=== PATIENT | male | born 1995 | race Caucasian/White ===

== ENCOUNTER 2019-07-31 11:07 | Emergency (ER) | payer BC, MEDICAID ==
[2019-07-31] MEDS ORDERED: Albuterol 0.083% 2.5 MG/3 ML Neb Soln NEB ONE (11:37)
--- NOTE | 2019-07-31 12:10 | CRLCR ---
INDICATION: Shortness breath and wheezy. TECHNIQUE: Two-views of the chest PA and lateral. COMPARISON: None. FINDINGS: Heart and mediastinum are normal. Lungs are clear. No consolidations or pleural effusions. Trachea is midline. No pneumothorax. Surgical clips in the right upper quadrant. IMPRESSION: No evidence of acute disease. Dictated by Lokesh Deal MD @ Jul 31 2019 12:08PM Signed by Dr. Lokesh Deal @ Jul 31 2019 12:08PM
--- NOTE | 2019-07-31 13:54 | EDM.PDOC ---
ED HPI GENERAL MEDICAL PROBLEM - General Chief Complaint: Respiratory Problem Stated Complaint: ANIXOUS Time Seen by Provider: 07/31/19 12:40 Source of Information: Reports: Patient, Family History Limitations: Reports: No Limitations - History of Present Illness INITIAL COMMENTS - FREE TEXT/NARRATIVE: pt was working at the [facility] [employer] [facility] [employer] desk and he became acutely sob. He felt very tight in his chest. He bent over and he could not catch his breath. Onset: Today, Sudden Duration: Hour(s): Location: Reports: Chest, Other (pt has a known history of exercise induced asthma. ) Associated Symptoms: Reports: Cough, Shortness of Breath, Other (pt was clearly hyperventilating on arrival. He has had panic attacks in the past. ) - Related Data Allergies Allergy/AdvReac Type Severity Reaction Status Date / Time peanut Allergy Severe Anaphylactic Verified 04/21/19 11:29 Shock venom-honey bee Allergy Severe Anaphylactic Verified 04/21/19 11:29 [bee venom (honey bee)] Shock Penicillins Allergy Cannot Verified 03/25/18 20:32 Remember Home Meds: Home Meds Albuterol [Ventolin HFA] 3 ml INH Q4H PRN 12/26/13 [History] EPINEPHrine [Epipen] 0.3 mg IM ASDIRECTED PRN 12/26/13 [History] Levalbuterol HCl [Xopenex] 10 mg PO DAILY PRN 12/26/13 [History] Insulin Aspart [NovoLOG] 1 unit SUBCUT ASDIRECTED 03/25/18 [History] Insulin Aspart [NovoLOG] 1 unit SUBCUT ASDIRECTED 03/25/18 [History] Insulin Degludec [Tresiba Flextouch U-100] 27 unit SUBCUT ASDIRECTED 03/25/18 [ History] Past Medical History HEENT History: Reports: Impaired Vision Other HEENT History: wears contacts Cardiovascular History: Reports: SOB on Exertion Respiratory History: Reports: Asthma Gastrointestinal History: Reports: GERD Musculoskeletal History: Reports: Fracture Other Musculoskeletal History: Left wrist fracture Neurological History: Reports: Concussion Psychiatric History: Reports: Anxiety Endocrine/Metabolic History: Reports: Diabetes, Type I Other Endocrine/Metabolic History: diagnoses . - Past Surgical History GI Surgical History: Reports: Cholecystectomy Social & Family History - Family History Cardiac: Reports: [place] Endocrine/Metabolic: Reports: Diabetes, type II - Tobacco Use Smoking Status *Q: Never Smoker - Caffeine Use Caffeine Use: Reports: Tea - Recreational Drug Use Recreational Drug Use: No ED ROS GENERAL - Review of Systems Review Of Systems: See Below Constitutional: Reports: No Symptoms HEENT: Reports: No Symptoms Respiratory: Reports: Shortness of Breath, Wheezing, Other (pt is hyperventilating nd feeling very sob. ) Cardiovascular: Reports: No Symptoms, Other ( his chest was uncomfortable. ) Endocrine: Reports: No Symptoms GI/Abdominal: Reports: No Symptoms : Reports: No Symptoms Musculoskeletal: Reports: No Symptoms Neurological: Reports: No Symptoms Psychiatric: Reports: Anxiety ED EXAM, GENERAL - Physical Exam Exam: See Below Free Text/Narrative:: pt arrived clearly hyperventilating and quite wheezy. Exam Limited By: No Limitations General Appearance: Alert, Anxious, Moderate Distress, Other (pt is clearly hyperventilating. ) Ears: Normal TMs Nose: Normal Inspection Throat/Mouth: Normal Inspection Head: Atraumatic Respiratory/Chest: Decreased Breath Sounds, Wheezing, Other ( very rapid short resp. ) Cardiovascular: Regular Rate, Rhythm GI/Abdominal: Soft, Non-Tender (Male) Exam: Deferred Rectal (Males) Exam: Deferred Back Exam: Normal Inspection Extremities: Normal Inspection Neurological: Alert, Oriented, Normal Cognition Psychiatric: Anxious Course - Vital Signs Last Recorded V/S: Last Vital Signs Temp 36.4 C 07/31/19 11:18 Pulse 76 07/31/19 11:48 Resp 24 H 07/31/19 11:48 BP 123/86 07/31/19 11:48 Pulse Ox 99 07/31/19 11:48 - Orders/Labs/Meds Labs: Laboratory Tests 07/31/19 07/31/19 Range/Units 11:38 11:45 WBC 5.6 (4.5-11.0) K/uL RBC 5.39 (4.30-5.90) M/uL Hgb 15.6 H (12.0-15.0) g/dL Hct 43.1 (40.0-54.0) % MCV 80 (80-98) fL MCH 29 (27-31) pg MCHC 36 (32-36) % Plt Count 259 (150-400) K/uL Neut % (Auto) 49 (36-66) % Lymph % (Auto) 31 (24-44) % Thayer % (Auto) 8 H (2-6) % Eos % (Auto) 10 H (2-4) % Baso % (Auto) 1 (0-1) % Sodium 135 L (140-148) mmol/L Potassium 4.0 (3.6-5.2) mmol/L Chloride 100 (100-108) mmol/L Carbon Dioxide 25 (21-32) mmol/L Anion Gap 14.0 (5.0-14.0) mmol/L BUN 14 (7-18) mg/dL Creatinine 0.9 (0.8-1.3) mg/dL Est Cr Clr Drug Dosing 114.21 mL/min Estimated GFR (MDRD) > 60 (>60) Glucose 265 H (74-106) mg/dL Calcium 8.8 (8.5-10.1) mg/dL Total Bilirubin 2.0 H (0.2-1.0) mg/dL AST 20 (15-37) U/L ALT 50 (12-78) U/L Alkaline Phosphatase 86 (46-116) U/L Total Protein 7.2 (6.4-8.2) g/dL Albumin 4.0 (3.4-5.0) g/dL Globulin 3.2 (2.3-3.5) g/dL Albumin/Globulin Ratio 1.3 (1.2-2.2) Meds: Medications Discontinued Medications Generic Name Dose Route Start Last Admin Trade Name Freq PRN Reason Stop Dose Admin Albuterol 2.5 mg 07/31/19 11:37 07/31/19 11:47 Proventil Neb Soln NEB 07/31/19 11:38 2.5 mg ONETIME ONE Administration Lorazepam 0.5 mg 07/31/19 14:00 07/31/19 12:36 Ativan PO 0.5 mg TID [id number] Administration - Re-Assessments/Exams Free Text/Narrative Re-Assessment/Exam: 07/31/19 14:00 pt did breath in a paper bag and got better. He had a chest xray that was clear. His o2 sats were good. He was given a neb and he had ativan .5 and he looks much better. Departure - Departure Time of Disposition: 13:51 Disposition: Home, Self-Care 01 Condition: Fair Clinical Impression: Panic attack, Wheezing - Discharge Information Instructions: Panic Attack, [id number] Referrals: PCP,None [Primary Care Provider] - Forms: ED Department Discharge Care Plan Goals: no further work today. He may return to work tomorrow. Pt does need to carry his inhaler with him. This afternoon pt should do nebs about 6 hours apart. Pt has xanax at home which he can uise if the pt should start feeling anxious Sepsis Event Note - Focused Exam Date Exam was Performed: 08/03/19 Time Exam was Performed: 18:28
[2019-07-31] MEDS ORDERED: LORazepam 0.5 MG Tab PO SCH (14:00)
[2019-07-31 14:14] VITALS: BP 123/86; PULSE 76
== END 2019-07-31 14:00 | disposition home or self-care (01) ==
LOC: JP.ED 11:07
DX: F41.0 Panic disorder [episodic paroxysmal anxiety] (principal); E10.9 Type 1 diabetes mellitus without complications; J45.909 Unspecified asthma, uncomplicated; Z90.49 Acquired absence of other specified parts of digestive tract; Z79.899 Other long term (current) drug therapy; Z91.010 Allergy to peanuts; Z91.030 Bee allergy status; Z88.0 Allergy status to penicillin
CPT/HCPCS: 36415; 71046; 80053; 85025; 94640; 99285; A9270

== ENCOUNTER 2021-02-25 19:52 | Emergency (ER) | payer OTHER, MEDICAID ==
[2021-02-25] MEDS ORDERED: Albuterol/Ipratropium 3.0-0.5 MG/3 ML Neb Soln NEB ONE (19:57)
[2021-02-25] MEDS ORDERED: LORazepam 1 MG Tab PO ONE (20:26)
[2021-02-25 20:28] VITALS: BP 153/81
[2021-02-25] MEDS ORDERED: methylPREDNISolone Sodium Succinate 125 MG/2 ML SDV IVPUSH ONE (20:37)
--- NOTE | 2021-02-25 20:51 | EDM.PDOC ---
ED HPI GENERAL MEDICAL PROBLEM - General Chief Complaint: Respiratory Problem Stated Complaint: DIFFICULTY BREATHING, COLD SWEAT, DIZZY Time Seen by Provider: 02/25/21 20:00 Source of Information: Reports: Patient, Family History Limitations: Reports: No Limitations - History of Present Illness INITIAL COMMENTS - FREE TEXT/NARRATIVE: 25-year-old male with chronic anxiety, asthma, and type 1 diabetes for the past 4 years presents with 1-1/2 weeks of persistent cough and wheezing. No fevers or chills, he is fully vaccinated for Covid. He was seen in the clinic a week ago, a chest x-ray was normal, Covid was negative and he was placed on prednisone and Zithromax. Seem to get somewhat better but the last 2 days has been much worse again. He arrived extremely anxious, increased respiratory rate with audible wheezing but with a 100% O2 saturation. No complaints of pain or headache. He took a nebulizer of albuterol just prior to coming in. He was diaphoretic. Onset: Gradual Duration: Week(s): (1/2 weeks of symptoms) Improves with: Reports: Other (Nebulizer helps for a while) Worsens with: Reports: None Associated Symptoms: Reports: Cough, Shortness of Breath, Other (Anxiety). Denies: Chest Pain, Nausea/Vomiting Treatments TECHNICAL DIRECTOR: Reports: Other Medication(s) Other Treatments TECHNICAL DIRECTOR: inhalers Chest Pain Score (Numeric/FACES): 5 - Related Data Allergies Allergy/AdvReac Type Severity Reaction Status Date / Time peanut Allergy Severe Anaphylactic Verified 02/25/21 19:58 Shock venom-honey bee Allergy Severe Anaphylactic Verified 02/25/21 19:58 [bee venom (honey bee)] Shock insulin lispro Allergy Hives Verified 02/25/21 19:58 [From Humalog Mix] insulin lispro protamine Allergy Hives Verified 02/25/21 19:58 [From Humalog Mix] Penicillins Allergy Cannot Verified 02/25/21 19:58 Remember Home Meds: Home Meds Albuterol [Ventolin HFA] 3 ml INH Q4H PRN 12/26/13 [History] EPINEPHrine [Epipen] 0.3 mg IM ASDIRECTED PRN 12/26/13 [History] levalbuterol HCL [Xopenex] 10 mg PO DAILY PRN 12/26/13 [History] Insulin Aspart [NovoLOG] 1 unit SUBCUT ASDIRECTED 03/25/18 [History] Insulin Aspart [NovoLOG] 1 unit SUBCUT ASDIRECTED 03/25/18 [History] Insulin Degludec [Tresiba Flextouch U-100] 27 unit SUBCUT ASDIRECTED 03/25/18 [History] ALPRAZolam [Xanax] 0.25 mg PO DAILY PRN 08/15/19 [History] Sertraline [Zoloft] 50 mg PO DAILY 02/25/21 [History] Past Medical History HEENT History: Reports: Impaired Vision Other HEENT History: wears contacts Cardiovascular History: Reports: SOB on Exertion Respiratory History: Reports: Asthma Gastrointestinal History: Reports: GERD Musculoskeletal History: Reports: Fracture Other Musculoskeletal History: Left wrist fracture. L shoulder pain Neurological History: Reports: Concussion Psychiatric History: Reports: Anxiety Endocrine/Metabolic History: Reports: Diabetes, Type I Other Endocrine/Metabolic History: diagnoses . - Past Surgical History HEENT Surgical History: Reports: None Cardiovascular Surgical History: Reports: None Respiratory Surgical History: Reports: None GI Surgical History: Reports: Cholecystectomy Neurological Surgical History: Reports: None Musculoskeletal Surgical History: Reports: None Social & Family History - Family History Cardiac: Reports: [place] Endocrine/Metabolic: Reports: Diabetes, type II - Tobacco Use Tobacco Use Status *Q: Never Tobacco User - Caffeine Use Caffeine Use: Reports: Coffee - Recreational Drug Use Recreational Drug Use: No ED ROS GENERAL - Review of Systems Review Of Systems: See Below Constitutional: Reports: Malaise. Denies: Fever, Chills HEENT: Denies: Ear Pain, Throat Pain Respiratory: Reports: Shortness of Breath, Cough. Denies: Sputum Cardiovascular: Denies: Chest Pain GI/Abdominal: Denies: Abdominal Pain, Nausea, Vomiting Musculoskeletal: Reports: No Symptoms Skin: Reports: Pallor, Diaphoresis Neurological: Reports: Weakness. Denies: Headache Psychiatric: Reports: Anxiety Free Text/Narrative/Comment: Glucose levels have been raised recently because of the prednisone treatment ED EXAM, GENERAL - Physical Exam Exam: See Below Exam Limited By: No Limitations General Appearance: Alert, Anxious, Mild Distress Eye Exam: Bilateral Eye: Normal Inspection Throat/Mouth: Normal Inspection Head: Atraumatic Respiratory/Chest: No Accessory Muscle Use, Respiratory Distress (Patient does present with a mild increased respiratory effort but not tachypnea), Rhonchi, Wheezing (Diffuse expiratory rhonchi and wheezes are heard throughout both lungs) Cardiovascular: Regular Rate, Rhythm. No: Tachycardia Neurological: Alert, Oriented Psychiatric: Normal Mood, Anxious Skin Exam: Warm, Diaphoretic Course - Vital Signs Last Recorded V/S: Last Vital Signs Temp 95.9 F L 02/25/21 20:27 Pulse 93 02/25/21 20:55 Resp 16 02/25/21 20:55 BP 153/81 H 02/25/21 20:27 Pulse Ox 100 02/25/21 20:55 - Orders/Labs/Meds Orders: Active Orders 24 hr Category Date Time Status Chest 2V [CR] Routine Exams 02/25/21 20:10 Taken Labs: Laboratory Tests 02/25/21 Range/Units 19:59 SARS CoV-2 RNA Rapid MK Negative Meds: Medications Discontinued Medications Generic Name Dose Route Start Last Admin Trade Name Freq PRN Reason Stop Dose Admin Albuterol/Ipratropium 3 ml 02/25/21 19:57 02/25/21 20:03 Albuterol/Ipratropium 3.0-0.5 Mg/3 Ml Neb Soln NEB 02/25/21 19:58 3 ml ONETIME ONE Administration Methylprednisolone Sodium Succinate 125 mg 02/25/21 20:37 02/25/21 20:52 Methylprednisolone Sodium Succinate 125 Mg/2 Ml Sdv IVPUSH 02/25/21 20:38 125 mg ONETIME ONE Administration - Re-Assessments/Exams Free Text/Narrative Re-Assessment/Exam: 02/25/21 21:42 Patient presented very anxious. He was given a DuoNeb which gave him significant objective and subjective improvement. A 2 view chest x-ray was then done that shows just slight increased peribronchial thickening which I believe is a change from his previous x-ray a week ago in the clinic. Covid was n egative. An IV was started and the patient was given 125 mg of IV Solu-Medrol, and he will be placed on a Medrol Dosepak starting tomorrow. He was encouraged to use his Xanax as needed for anxiety breakthrough as part of his presentation was an anxiety or panic attack. He felt much better on discharge. Departure - Departure Time of Disposition: 21:05 Disposition: Home, Self-Care 01 Clinical Impression: Viral bronchitis, Anxiety about health Asthma exacerbation Qualifiers: Asthma severity: moderate Asthma persistence: persistent Qualified Code(s): J45.41 - Moderate persistent asthma with (acute) exacerbation - Discharge Information Instructions: Asthma, Adult Referrals: Pelon Lowe MD [Primary Care Provider] - Forms: ED Department Discharge Care Plan Goals: Take Medrol Dosepak as prescribed, starting tomorrow morning. Continue with your nebulizer as needed and consider a Xanax occasionally when you are anxious. Return anytime if worsening despite treatment. Consider rechecking in 3 to 4 days if not improving satisfactorily. Sepsis Event Note (ED) - Evaluation Sepsis Screening Result: No Definite Risk - Focused Exam Vital Signs: Vital Signs Temp Pulse Resp BP Pulse Ox 02/25/21 20:55 93 16 100 02/25/21 20:27 95.9 F L 95 22 H 153/81 H 100 02/25/21 19:54 96.4 F L 106 H 16 137/97 H 100 - My Orders Last 24 Hours: My Active Orders 02/25/21 20:10 Chest 2V [CR] Routine - Assessment/Plan Last 24 Hours: My Active Orders 02/25/21 20:10 Chest 2V [CR] Routine
[2021-02-25 20:56] VITALS: PULSE 93
--- NOTE | 2021-02-26 09:29 | CR ---
CHEST: 2 view CLINICAL HISTORY:Dyspnea COMPARISON:07/31/2019 FINDINGS: Heart size and pulmonary vascular normal. There is mild prominence of the lung markings bilaterally. No effusion is seen. IMPRESSION: Mild generalized prominence lung markings. Some of this may be technical. Diffuse pneumonitis is not excluded
== END 2021-02-25 21:06 | disposition home or self-care (01) ==
LOC: JP.ED 19:52
DX: U07.1 COVID-19 (principal); J20.8 Acute bronchitis due to other specified organisms; E10.9 Type 1 diabetes mellitus without complications; J45.41 Moderate persistent asthma with (acute) exacerbation; Z91.010 Allergy to peanuts; Z91.030 Bee allergy status; Z88.8 Allergy status to other drugs, medicaments and biological substances; Z88.0 Allergy status to penicillin; Z79.899 Other long term (current) drug therapy
CPT/HCPCS: 71046; 87635; 94640; 96374; 99285; J2930; J7620-GY; U0002

== ENCOUNTER 2021-07-07 11:32 | Emergency (ER) | payer MEDICAID ==
[2021-07-07] MEDS ORDERED: Sodium Chloride 0.9% 10 ML Syringe FLUSH PRN (12:21)
[2021-07-07] MEDS ORDERED: Levofloxacin/Dextrose 5%-Water 750 MG in Premix Bag 1 BAG IV ONE (12:27)
[2021-07-07] MEDS ORDERED: Albuterol 8 GM Inhaler INH ONE (12:30)
[2021-07-07] MEDS ORDERED: methylPREDNISolone Sodium Succinate 125 MG/2 ML SDV IVPUSH ONE (12:46)
[2021-07-07 12:57] LABS: CORONAVIRUS COVID-19 NAA NEGATIVE (NEGATIVE)
[2021-07-07] MEDS ORDERED: Montelukast 10 MG Tab PO ONE (13:12)
[2021-07-07 18:14] VITALS: BP 139/84; PULSE 84
[2021-07-07] MEDS ORDERED: predniSONE 20 MG Tab PO ONE (18:25)
== END 2021-07-07 18:58 | disposition home or self-care (01) ==
LOC: JP.ED 11:32
DX: J45.41 Moderate persistent asthma with (acute) exacerbation (principal); E10.9 Type 1 diabetes mellitus without complications; Z90.49 Acquired absence of other specified parts of digestive tract; Z88.0 Allergy status to penicillin; Z91.010 Allergy to peanuts; Z79.4 Long term (current) use of insulin; Z79.899 Other long term (current) drug therapy; Z20.822 Contact with and (suspected) exposure to COVID-19
CPT/HCPCS: 0241U; 36415; 71045; 80048; 80076; 83605; 84145; 85025; 85379; 85610; 85730; 86140; 87040; 93005; 94640; 96374; 96375; 99285; A9270; J1956; J2930; J7512

== ENCOUNTER 2021-09-09 16:03 | Emergency (ER) | payer MEDICAID ==
[2021-09-09] MEDS ORDERED: LORazepam 2 MG/ML SDV IM ONE (16:26)
[2021-09-09] MEDS ORDERED: LORazepam 2 MG/ML SDV IM PRN (16:54)
[2021-09-09 17:45] VITALS: BP 123/79; PULSE 81
== END 2021-09-09 18:05 | disposition home or self-care (01) ==
LOC: JP.ED 16:03
DX: F41.0 Panic disorder [episodic paroxysmal anxiety] (principal); E10.9 Type 1 diabetes mellitus without complications; Z91.010 Allergy to peanuts; Z91.030 Bee allergy status; Z88.0 Allergy status to penicillin; Z88.8 Allergy status to other drugs, medicaments and biological substances
CPT/HCPCS: 36415; 80048; 85025; 96372; 99283; J2060

== ENCOUNTER 2021-09-25 15:25 | Emergency (ER) | payer MEDICAID ==
[2021-09-25] MEDS ORDERED: LORazepam 2 MG/ML SDV IVPUSH ONE ×2 (15:28→16:36)
[2021-09-25 17:30] VITALS: BP 120/73; PULSE 82
== END 2021-09-25 17:56 | disposition home or self-care (01) ==
LOC: JP.ED 15:25
DX: F45.8 Other somatoform disorders (principal); E10.9 Type 1 diabetes mellitus without complications; K21.9 Gastro-esophageal reflux disease without esophagitis; Z91.010 Allergy to peanuts; Z91.030 Bee allergy status; Z88.8 Allergy status to other drugs, medicaments and biological substances; Z88.0 Allergy status to penicillin
CPT/HCPCS: 36415; 36600; 80048; 82803; 82947; 85025; 96374; 96376; 99282; 99283-25; J2060

== ENCOUNTER 2021-11-04 17:31 | Emergency (ER) | payer OTHER, MEDICAID ==
[2021-11-04] MEDS ORDERED: predniSONE 20 MG Tab PO ONE (18:04)
[2021-11-04 18:13] VITALS: BP 131/105; PULSE 98
[2021-11-04 18:51] LABS: ESTIMATED GFR > 60 (>60)
== END 2021-11-04 19:21 | disposition home or self-care (01) ==
LOC: JP.ED 17:31
DX: U07.1 COVID-19 (principal); J45.901 Unspecified asthma with (acute) exacerbation; E10.9 Type 1 diabetes mellitus without complications; Z91.030 Bee allergy status; Z88.8 Allergy status to other drugs, medicaments and biological substances; Z88.0 Allergy status to penicillin; Z91.048 Other nonmedicinal substance allergy status; Z79.4 Long term (current) use of insulin; Z86.16 Personal history of COVID-19
CPT/HCPCS: 36415; 71045; 80048; 84145; 85025; 86140; 99282; 99285; J7512

== ENCOUNTER 2022-07-01 12:52 | Emergency (ER) | payer OTHER, MEDICAID ==
[2022-07-01] MEDS ORDERED: 50% Dextrose in Water 50 ML Syringe IVPUSH ONE ×2 (13:06→13:54)
[2022-07-01] MEDS ORDERED: Dextrose 5%-Lact Ringers w/KCl 1,000 ML IV SCH (13:15)
[2022-07-01 13:29] LABS: ESTIMATED GFR 120 mL/min (>60)
[2022-07-01 14:00] VITALS: BP 128/85; PULSE 84
== END 2022-07-01 15:10 | disposition home or self-care (01) ==
LOC: JP.ED 12:52
DX: E10.649 Type 1 diabetes mellitus with hypoglycemia without coma (principal); K21.9 Gastro-esophageal reflux disease without esophagitis; J45.909 Unspecified asthma, uncomplicated; Z91.030 Bee allergy status; Z88.0 Allergy status to penicillin; Z91.048 Other nonmedicinal substance allergy status; Z86.16 Personal history of COVID-19
CPT/HCPCS: 36415; 80048; 82947; 85025; 96361; 96374; 99284; J3480

== ENCOUNTER 2022-12-04 06:52 | Emergency (ER) | payer MEDICAID, OTHER ==
[2022-12-04] MEDS ORDERED: Albuterol/Ipratropium 3.0-0.5 MG/3 ML Neb Soln NEB ONE (07:34)
[2022-12-04] MEDS ORDERED: Acetaminophen 325 MG Tab PO ONE (07:34)
[2022-12-04 07:38] LABS: BASOPHILS ABSOLUTE AUTO 0.08 K/uL (0.00-0.10); EOSINOPHILS ABSOLUTE AUTO 0.64 K/uL (0.00-0.40); EOSINOPHILS PERCENT AUTO 8.1 % (0.0-5.4); HEMATOCRIT 44.6 % (38.4-49.7); HEMOGLOBIN 15.9 g/dL (12.9-16.9); IMMATURE GRAN ABSOLUTE AUTO 0.04 K/uL (0.00-0.23); IMMATURE GRAN PERCENT AUTO 0.5 % (0.0-0.7); LYMPHOCYTES ABSOLUTE AUTO 2.24 K/uL (0.8-3.3); LYMPHOCYTES PERCENT AUTO 28.2 % (11.4-47.7); MEAN CORPUSCULAR HGB CONC 35.7 g/dL (31.6-35.5); MEAN CORPUSCULAR VOLUME 81.4 fL (81.4-99.0); MONOCYTES ABSOLUTE AUTO 0.65 K/uL (0.20-0.90); MONOCYTES PERCENT AUTO 8.2 % (3.3-12.6); PLATELET COUNT,PLT 256 K/uL (130-375); RED BLOOD CELL COUNT 5.48 M/uL (4.14-5.76)
[2022-12-04 08:02] LABS: CALCIUM 9.1 mg/dL (8.5-10.1); EST CRCL DRUG DOSING (CG) 103.74 mL/min; POTASSIUM,K 4.7 mmol/L (3.6-5.2); TROPONIN I HIGH SENSITIVITY 4.1 pg/mL (<=60.3)
[2022-12-04 09:08] VITALS: BP 144/79; PULSE 89
== END 2022-12-04 09:55 | disposition home or self-care (01) ==
LOC: JP.ED 06:52
DX: M94.0 Chondrocostal junction syndrome [Tietze] (principal); J45.909 Unspecified asthma, uncomplicated; E10.9 Type 1 diabetes mellitus without complications; F17.200 Nicotine dependence, unspecified, uncomplicated; Z79.4 Long term (current) use of insulin; Z79.51 Long term (current) use of inhaled steroids; Z91.030 Bee allergy status; Z88.8 Allergy status to other drugs, medicaments and biological substances; Z91.018 Allergy to other foods; Z88.0 Allergy status to penicillin; Z86.16 Personal history of COVID-19
CPT/HCPCS: 36415; 71046; 80048; 84484; 85025; 85379; 93005; 94640; 99285; A9270; J7620

== ENCOUNTER 2023-02-19 10:32 | Day surgery (SDC) | payer OTHER ==
[2023-02-19] MEDS ORDERED: Lactated Ringers 1,000 ML IV ONE (10:35)
[2023-02-19 10:53] LABS: HEMOGLOBIN 16.6 g/dL (12.9-16.9); MEAN CORPUSCULAR HEMOGLOBIN 29.2 pg (31.6-35.5); MEAN CORPUSCULAR HGB CONC 35.3 g/dL (31.6-35.5); MEAN CORPUSCULAR VOLUME 82.7 fL (81.4-99.0); RED BLOOD CELL COUNT 5.68 M/uL (4.14-5.76)
[2023-02-19 11:14] LABS: ALANINE AMINOTRANSFERASE,ALT 29 U/L (12-78); ALBUMIN 4.2 g/dL (3.4-5.0); ALKALINE PHOSPHATASE 80 U/L (46-116); ASPARTATE AMNIOTRANSFERASE,AST 17 U/L (15-37); BILIRUBIN TOTAL 1.7 mg/dL (0.2-1.0); BLOOD UREA NITROGEN,BUN 10 mg/dL (7-18); CALCIUM 8.6 mg/dL (8.5-10.1); CARBON DIOXIDE,CO2 28 mmol/L (21-32); CHLORIDE,CL 102 mmol/L (100-108); EST CRCL DRUG DOSING (CG) 103.74 mL/min; ESTIMATED GFR 106 mL/min (>60); GLUCOSE RANDOM 70 mg/dL (74-106); POTASSIUM,K 3.5 mmol/L (3.6-5.2); PROTEIN TOTAL,TP 8.3 g/dL (6.4-8.2); SODIUM,NA 141 mmol/L (140-148)
[2023-02-19] MEDS ORDERED: Propofol 200 MG/20 ML SDV ONE (11:15)
[2023-02-19] MEDS ORDERED: fentaNYL 100 MCG/2 ML SDV ONE (11:16)
[2023-02-19] MEDS ORDERED: Midazolam 1 MG/ML 2 ML SDV ONE (11:16)
[2023-02-19 11:17] LABS: ANION GAP 14.5 mmol/L (5.0-14.0)
[2023-02-19] MEDS ORDERED: Potassium Chloride 10 MEQ in Premix Bag 1 BAG IV ONE (11:45)
[2023-02-19] MEDS ORDERED: Sodium Chloride 0.9% 1,000 ML IV SCH (13:00)
[2023-02-19 13:47] VITALS: BP 129/80; PULSE 70
== END 2023-02-19 13:57 | disposition home or self-care (01) ==
LOC: JP.SDS 10:32
PROVIDERS: ATTEND Student in an Organized Health Care Education/Training Program
DX: K21.9 Gastro-esophageal reflux disease without esophagitis (principal); K29.50 Unspecified chronic gastritis without bleeding; K25.9 Gastric ulcer, unspecified as acute or chronic, without hemorrhage or perforation; J45.909 Unspecified asthma, uncomplicated; F41.9 Anxiety disorder, unspecified; F32.A Depression, unspecified; F43.10 Post-traumatic stress disorder, unspecified; E10.9 Type 1 diabetes mellitus without complications; E66.9 Obesity, unspecified; Z88.0 Allergy status to penicillin; Z88.8 Allergy status to other drugs, medicaments and biological substances; Z91.030 Bee allergy status; Z68.30 Body mass index [BMI] 30.0-30.9, adult
CPT/HCPCS: 36415; 43239; 80053; 83690; 85027; 88305; J2250; J2704; J3010; J3480; J7030; J7120

== ENCOUNTER 2023-04-30 06:31 | Day surgery (SDC) | payer OTHER ==
[2023-04-30] MEDS ORDERED: Propofol 200 MG/20 ML SDV ONE (07:12)
[2023-04-30] MEDS ORDERED: fentaNYL 100 MCG/2 ML SDV ONE (07:12)
[2023-04-30] MEDS ORDERED: Midazolam 1 MG/ML 2 ML SDV ONE (07:13)
[2023-04-30] MEDS: Lactated Ringers 1,000 ML IV SCH (07:25)
[2023-04-30 09:30] VITALS: BP 120/75; PULSE 74
== END 2023-04-30 09:35 | disposition home or self-care (01) ==
LOC: JP.SDS 06:31
PROVIDERS: ATTEND Student in an Organized Health Care Education/Training Program
DX: K29.50 Unspecified chronic gastritis without bleeding (principal); K25.9 Gastric ulcer, unspecified as acute or chronic, without hemorrhage or perforation; I10 Essential (primary) hypertension; J45.909 Unspecified asthma, uncomplicated; F43.10 Post-traumatic stress disorder, unspecified; F41.9 Anxiety disorder, unspecified; I25.2 Old myocardial infarction; Z79.899 Other long term (current) drug therapy; Z88.0 Allergy status to penicillin; Z91.030 Bee allergy status; Z91.018 Allergy to other foods; Z88.8 Allergy status to other drugs, medicaments and biological substances
CPT/HCPCS: 88305; J2250; J2704; J3010; J7120

== ENCOUNTER 2023-09-16 15:00 | Emergency (ER) | payer OTHER ==
[2023-09-16 15:42] LABS: BASOPHILS ABSOLUTE AUTO 0.07 K/uL (0.00-0.10); BASOPHILS PERCENT AUTO 0.9 % (0.1-1.3); EOSINOPHILS ABSOLUTE AUTO 0.24 K/uL (0.00-0.40); EOSINOPHILS PERCENT AUTO 3.1 % (0.0-5.4); HEMATOCRIT 42.3 % (38.4-49.7); HEMOGLOBIN 15.2 g/dL (12.9-16.9); IMMATURE GRAN PERCENT AUTO 0.1 % (0.0-0.7); LYMPHOCYTES ABSOLUTE AUTO 2.01 K/uL (0.8-3.3); LYMPHOCYTES PERCENT AUTO 25.9 % (11.4-47.7); MEAN CORPUSCULAR HGB CONC 35.9 g/dL (31.6-35.5); MEAN CORPUSCULAR VOLUME 80.7 fL (81.4-99.0); MONOCYTES ABSOLUTE AUTO 0.43 K/uL (0.20-0.90); MONOCYTES PERCENT AUTO 5.5 % (3.3-12.6); NEUTROPHILS ABSOLUTE AUTO 5.01 K/uL (1.0-7.6); NEUTROPHILS PERCENT AUTO 64.5 % (40.0-78.1); PLATELET COUNT,PLT 253 K/uL (130-375); RED BLOOD CELL COUNT 5.24 M/uL (4.14-5.76); WHITE BLOOD CELL COUNT,WBC 7.8 K/uL (3.2-11.0)
[2023-09-16 15:43] LABS: IMMATURE GRAN ABSOLUTE AUTO 0.01 K/uL (0.00-0.23)
[2023-09-16 15:46] VITALS: BP 120/83; PULSE 78
[2023-09-16 15:48] LABS: AMPHETAMINES SCREEN, URINE NEGATIVE (NEGATIVE); BARBITURATE SCREEN,URINE NEGATIVE (NEGATIVE); BENZODIAZEPINES SCREEN,URINE NEGATIVE (NEGATIVE); METHADONE SCREEN, URINE NEGATIVE (NEGATIVE); METHAMPHETAMINES SCREEN, URINE NEGATIVE (NEGATIVE); OXYCODONE SCREEN,URINE NEGATIVE (NEGATIVE); PROPOXYPHENE SCREEN,URINE NEGATIVE (NEGATIVE); THC SCREEN,URINE 50 NG/ML NEGATIVE (NEGATIVE)
[2023-09-16 15:58] LABS: ANION GAP 13.5 mmol/L (5.0-14.0); CALCIUM 9.6 mg/dL (8.5-10.1); EST CRCL DRUG DOSING (CG) 102.82 mL/min; POTASSIUM,K 3.5 mmol/L (3.6-5.2)
== END 2023-09-16 17:03 | disposition home or self-care (01) ==
LOC: JP.ED 15:00
DX: R55 Syncope and collapse (principal); I10 Essential (primary) hypertension; J45.909 Unspecified asthma, uncomplicated; K21.9 Gastro-esophageal reflux disease without esophagitis; E10.9 Type 1 diabetes mellitus without complications; Z88.8 Allergy status to other drugs, medicaments and biological substances; Z91.030 Bee allergy status; Z88.0 Allergy status to penicillin; Z79.51 Long term (current) use of inhaled steroids; Z86.16 Personal history of COVID-19
CPT/HCPCS: 36415; 80048; 80305-QW; 83605; 85025; 93005; 93010; 99283; 99284

== ENCOUNTER 2023-09-17 11:42 | Emergency (ER) | payer OTHER ==
[2023-09-17 12:18] LABS: BASOPHILS ABSOLUTE AUTO 0.07 K/uL (0.00-0.10); BASOPHILS PERCENT AUTO 1.1 % (0.1-1.3); EOSINOPHILS ABSOLUTE AUTO 0.25 K/uL (0.00-0.40); HEMATOCRIT 40.4 % (38.4-49.7); HEMOGLOBIN 14.3 g/dL (12.9-16.9); IMMATURE GRAN ABSOLUTE AUTO 0.03 K/uL (0.00-0.23); IMMATURE GRAN PERCENT AUTO 0.5 % (0.0-0.7); LYMPHOCYTES ABSOLUTE AUTO 1.48 K/uL (0.8-3.3); LYMPHOCYTES PERCENT AUTO 23.5 % (11.4-47.7); MEAN CORPUSCULAR HEMOGLOBIN 29.1 pg (31.6-35.5); MEAN CORPUSCULAR HGB CONC 35.4 g/dL (31.6-35.5); MEAN CORPUSCULAR VOLUME 82.3 fL (81.4-99.0); MONOCYTES ABSOLUTE AUTO 0.39 K/uL (0.20-0.90); MONOCYTES PERCENT AUTO 6.2 % (3.3-12.6); NEUTROPHILS ABSOLUTE AUTO 4.07 K/uL (1.0-7.6); NEUTROPHILS PERCENT AUTO 64.7 % (40.0-78.1); PLATELET COUNT,PLT 204 K/uL (130-375); RED BLOOD CELL COUNT 4.91 M/uL (4.14-5.76); WHITE BLOOD CELL COUNT,WBC 6.3 K/uL (3.2-11.0)
[2023-09-17 12:19] LABS: BASE EXCESS VENOUS 3.2 mm/L; BICARBONATE,VENOUS 27.3 mmol/L; CARBOXYHEMOGLOBIN 1.6 % (0.0-1.6); METHEMOGLOBIN 0.9 %; O2 SATURATION VENOUS 46.1; OXYHEMOGLOBIN 44.9 %; PCO2 VENOUS 41.7 mm/Hg; PH,VENOUS 7.432 (7.350-7.450)
[2023-09-17 12:22] LABS: PO2 VENOUS 25.4 mm/Hg
[2023-09-17 12:46] LABS: A/G RATIO 1.1 (1.2-2.2); ALANINE AMINOTRANSFERASE,ALT 28 U/L (12-78); ALBUMIN 3.6 g/dL (3.4-5.0); ALKALINE PHOSPHATASE 75 U/L (46-116); ANION GAP 6.1 mmol/L (5.0-14.0); ASPARTATE AMNIOTRANSFERASE,AST 15 U/L (15-37); BILIRUBIN TOTAL 1.2 mg/dL (0.2-1.0); BLOOD UREA NITROGEN,BUN 12 mg/dL (7-18); CALCIUM 8.7 mg/dL (8.5-10.1); CARBON DIOXIDE,CO2 28 mmol/L (21-32); CHLORIDE,CL 107 mmol/L (100-108); CREATININE 0.9 mg/dL (0.8-1.3); EST CRCL DRUG DOSING (CG) 114.25 mL/min; ESTIMATED GFR 119 mL/min (>60); GLUCOSE RANDOM 177 mg/dL (74-106); POTASSIUM,K 4.2 mmol/L (3.6-5.2); PROTEIN TOTAL,TP 6.8 g/dL (6.4-8.2); SODIUM,NA 141 mmol/L (140-148)
[2023-09-17 15:22] VITALS: BP 112/75; PULSE 71
== END 2023-09-17 15:35 | disposition home or self-care (01) ==
LOC: JP.ED 11:42
DX: G40.909 Epilepsy, unspecified, not intractable, without status epilepticus (principal); I10 Essential (primary) hypertension; E10.9 Type 1 diabetes mellitus without complications; J45.909 Unspecified asthma, uncomplicated; K21.9 Gastro-esophageal reflux disease without esophagitis; Z91.018 Allergy to other foods; Z91.030 Bee allergy status; Z88.0 Allergy status to penicillin; Z88.8 Allergy status to other drugs, medicaments and biological substances; Z79.51 Long term (current) use of inhaled steroids; Z79.4 Long term (current) use of insulin; Z79.85 Long-term (current) use of injectable non-insulin antidiabetic drugs; Z86.16 Personal history of COVID-19; Z90.49 Acquired absence of other specified parts of digestive tract
CPT/HCPCS: 36415; 70450; 80053; 80307; 82803; 83605; 83735; 85025; 96374; 96376; 99285; J3360

== ENCOUNTER 2023-10-06 12:32 | Emergency (ER) | payer OTHER ==
[2023-10-06 13:00] LABS: BICARBONATE,VENOUS 27.5 mmol/L; CARBOXYHEMOGLOBIN 2.3 % (0.0-1.6); METHEMOGLOBIN 0.7 %; O2 SATURATION VENOUS 56.3; OXYHEMOGLOBIN 54.6 %; PCO2 VENOUS 42.5 mm/Hg; PH,VENOUS 7.427 (7.350-7.450)
[2023-10-06 13:01] LABS: BASE EXCESS VENOUS 3.2 mm/L; PO2 VENOUS 29.8 mm/Hg; TOTAL HEMOGLOBIN 16.4 g/dL (13.5-18.0)
[2023-10-06 13:02] LABS: BASOPHILS ABSOLUTE AUTO 0.07 K/uL (0.00-0.10); BASOPHILS PERCENT AUTO 1.2 % (0.1-1.3); EOSINOPHILS ABSOLUTE AUTO 0.31 K/uL (0.00-0.40); EOSINOPHILS PERCENT AUTO 5.3 % (0.0-5.4); HEMATOCRIT 43.2 % (38.4-49.7); HEMOGLOBIN 15.7 g/dL (12.9-16.9); IMMATURE GRAN PERCENT AUTO 0.2 % (0.0-0.7); LYMPHOCYTES PERCENT AUTO 27.4 % (11.4-47.7); MEAN CORPUSCULAR HEMOGLOBIN 29.3 pg (31.6-35.5); MEAN CORPUSCULAR HGB CONC 36.3 g/dL (31.6-35.5); MEAN CORPUSCULAR VOLUME 80.7 fL (81.4-99.0); MONOCYTES ABSOLUTE AUTO 0.34 K/uL (0.20-0.90); MONOCYTES PERCENT AUTO 5.8 % (3.3-12.6); NEUTROPHILS ABSOLUTE AUTO 3.51 K/uL (1.0-7.6); NEUTROPHILS PERCENT AUTO 60.1 % (40.0-78.1); PLATELET COUNT,PLT 231 K/uL (130-375); RED BLOOD CELL COUNT 5.35 M/uL (4.14-5.76); WHITE BLOOD CELL COUNT,WBC 5.8 K/uL (3.2-11.0)
[2023-10-06 13:03] LABS: IMMATURE GRAN ABSOLUTE AUTO 0.01 K/uL (0.00-0.23)
[2023-10-06] MEDS: Sodium Chloride 0.9% 1,000 ML IV ONE (13:03)
[2023-10-06 13:16] LABS: APPEARANCE,URINE CLEAR (CLEAR); BILIRUBIN,URINE NEGATIVE (NEGATIVE); COLOR,URINE YELLOW (YELLOW); GLUCOSE,URINE NEGATIVE (NEGATIVE); KETONES,URINE NEGATIVE (NEGATIVE); LEUKOCYTE ESTERASE,URINE NEGATIVE (NEGATIVE); NITRITE,URINE NEGATIVE (NEGATIVE); OCCULT BLOOD,URINE NEGATIVE (NEGATIVE); PROTEIN,URINE NEGATIVE (NEGATIVE); UROBILINOGEN,URINE 0.2 EU/dL (0.2-1.0)
[2023-10-06 13:23] LABS: AMORPHOUS SEDIMENT,URINE RARE; AMPHETAMINES SCREEN, URINE NEGATIVE (NEGATIVE); BACTERIA,URINE NOT SEEN; BARBITURATE SCREEN,URINE NEGATIVE (NEGATIVE); BENZODIAZEPINES SCREEN,URINE NEGATIVE (NEGATIVE); EPITHELIAL CELLS,URINE NOT SEEN; METHADONE SCREEN, URINE NEGATIVE (NEGATIVE); METHAMPHETAMINES SCREEN, URINE NEGATIVE (NEGATIVE); MUCUS,URINE NOT SEEN; OXYCODONE SCREEN,URINE NEGATIVE (NEGATIVE); PROPOXYPHENE SCREEN,URINE NEGATIVE (NEGATIVE); RBC,URINE NOT SEEN (0-5); THC SCREEN,URINE 50 NG/ML NEGATIVE (NEGATIVE); WBC,URINE NOT SEEN (0-5)
[2023-10-06 13:24] LABS: A/G RATIO 1.1 (1.2-2.2); ALANINE AMINOTRANSFERASE,ALT 31 U/L (12-78); ALBUMIN 3.9 g/dL (3.4-5.0); ALKALINE PHOSPHATASE 80 U/L (46-116); ANION GAP 8.4 mmol/L (5.0-14.0); ASPARTATE AMNIOTRANSFERASE,AST 16 U/L (15-37); BLOOD UREA NITROGEN,BUN 8 mg/dL (7-18); CALCIUM 9.1 mg/dL (8.5-10.1); CARBON DIOXIDE,CO2 29 mmol/L (21-32); CHLORIDE,CL 104 mmol/L (100-108); CREATININE 0.9 mg/dL (0.8-1.3); EST CRCL DRUG DOSING (CG) 114.25 mL/min; ESTIMATED GFR 119 mL/min (>60); GLUCOSE RANDOM 182 mg/dL (74-106); POTASSIUM,K 4.4 mmol/L (3.6-5.2); PROTEIN TOTAL,TP 7.5 g/dL (6.4-8.2); SODIUM,NA 137 mmol/L (140-148); TSH ULTRASENSITIVE 1.139 uIU/mL (0.358-3.740)
[2023-10-06 13:45] VITALS: BP 121/76; PULSE 75
[2023-10-06] MEDS ORDERED: HYDROmorphone 1 MG/ML Syringe IVPUSH ONE (14:31)
== END 2023-10-06 14:45 | disposition home or self-care (01) ==
LOC: JP.ED 12:32
DX: G40.909 Epilepsy, unspecified, not intractable, without status epilepticus (principal); I10 Essential (primary) hypertension; J45.909 Unspecified asthma, uncomplicated; K21.9 Gastro-esophageal reflux disease without esophagitis; E10.9 Type 1 diabetes mellitus without complications; Z88.8 Allergy status to other drugs, medicaments and biological substances; Z91.018 Allergy to other foods; Z91.030 Bee allergy status; Z88.0 Allergy status to penicillin; Z79.51 Long term (current) use of inhaled steroids; Z79.4 Long term (current) use of insulin; Z79.899 Other long term (current) drug therapy; Z86.16 Personal history of COVID-19; Z90.49 Acquired absence of other specified parts of digestive tract
CPT/HCPCS: 36415; 80053; 80305; 80307; 81001; 82803; 83735; 84443; 85025; 96360; 99284; J7030